=== PATIENT | female | born 1965 | race American Indian/Alaskan Native ===

== ENCOUNTER 2021-06-13 04:04 | Emergency (ER) | payer MEDICAID ==
--- NOTE | 2021-06-13 05:08 | Event Note ---
ED Screening Note ED Screening Note: 35-year-old female [facility] emerge department complaining of a few day history of epigastric pain and abdominal bloating associated with nausea and increased belching and unknown etiology This initial assessment/diagnostic orders/clinical plan/treatment(s) is/are subject to change based on patients health status, clinical progression and re- assessment by fellow clinical providers in the ED. Further treatment and workup at subsequent clinical providers discretion. Patient/guardian urged not to elope from the ED as their condition may be serious if not clinically assessed and managed. Initial orders include: Obtain labs and EKG to evaluate to evaluate cardiopulmonary as per
[2021-06-13 05:38] LABS: Hematocrit 39.1 % (30.3-42.9); Hemoglobin 13.4 gm/dl (10.1-14.3); Mean Corpuscular HGB Conc 34 % (30-34); Mean Corpuscular Volume 100 fl (79-97); Platelet Count 290 K/mm3 (140-440); Red Blood Count 3.91 M/mm3 (3.65-5.03); Red Cell Distribution Width 12.5 % (13.2-15.2)
[2021-06-13 05:49] LABS: Alanine Aminotransferase 12 units/L (7-56); Albumin 4.8 g/dL (3.9-5); Blood Urea Nitrogen 9 mg/dL (7-17); Hemolysis Index 10
[2021-06-13 05:51] LABS: BUN/Creatinine Ratio 15; Bilirubin,Direct < 0.2 mg/dL (0-0.2)
--- NOTE | 2021-06-13 06:22 | XRay Report ---
CHEST 2 VIEWS INDICATION: cp. COMPARISON: None. FINDINGS: Support devices: None. Heart: Within normal limits. Lungs/Pleura: No acute air space or interstitial disease. No significant pleural effusion. IMPRESSION: No acute findings. Signer Name: Jeison Dowell MD Signed: 06/13/2021 6:17 AM Workstation Name: [id number]
[2021-06-13] MEDS ORDERED: MORPHINE 2 MG/1 ML INJ IV NR (06:48)
[2021-06-13] MEDS ORDERED: ONDANSETRON 4 MG/2 ML INJ IV NR (06:48)
[2021-06-13] MEDS ORDERED: SODIUM CHLORIDE 0.9% 1000 ML 1,000 ML IV ONE (06:48)
--- NOTE | 2021-06-13 06:50 | Emergency Department Report ---
ED Abdominal Pain HPI - General Chief Complaint: Abdominal Pain PUI?: No Time Seen by Provider: 06/13/21 06:14 Source: patient Mode of arrival: Ambulatory Limitations: No Limitations - History of Present Illness Initial Comments: 55-year-old -Japanese female with a past medical history of hypertension, hyperlipidemia, status post gastric sleeve in 2019 and a history of hiatal hernia presents to the ER today with complaints of epigastric pain. Patient states that her pain started last night. She states that it felt like "trapped gas". She has been doing increased burping but no flatulence. She reports associated nausea and vomited. She states that she vomited about 5-6 times. Emesis was mainly bilious of clear liquid. She states that her last bowel movement was yesterday morning and normal. She was also having cold sweats last night and so given all her symptoms she decided come to the ER. She denies any fever. She reports no chest pain or shortness of breath. She reports no other symptoms at this time. MD Complaint: abdominal pain -: Last night - Related Data Previous Rx's Medication Instructions Recorded Last Taken Type Famotidine [Pepcid] 20 mg PO BID #30 tablet 06/13/21 Unknown Rx Ondansetron [Zofran Odt] 4 mg PO Q8HR #15 tab.rapdis 06/13/21 Unknown Rx Pantoprazole [Protonix] 40 mg PO QDAY #30 tablet 06/13/21 Unknown Rx traMADoL [Ultram] 50 mg PO Q4HR PRN #12 tablet 06/13/21 Unknown Rx Allergies Allergy/AdvReac Type Severity Reaction Status Date / Time gabapentin AdvReac Unknown Verified 06/13/21 07:35 ED Review of Systems ROS: Stated complaint: Other details as noted in HPI Comment: All other systems reviewed and negative Constitutional: denies: chills, fever Eyes: denies: eye pain, eye discharge, vision change ENT: denies: ear pain, throat pain Respiratory: denies: cough, shortness of breath, wheezing Cardiovascular: denies: chest pain, palpitations, dyspnea on exertion Gastrointestinal: abdominal pain, nausea, vomiting Genitourinary: denies: urgency, dysuria, frequency, hematuria, discharge, abnormal menses, dyspareunia Musculoskeletal: denies: back pain, joint swelling, arthralgia Skin: denies: rash, lesions Neurological: denies: headache, weakness, numbness, paresthesias, confusion, abnormal gait, vertigo Psychiatric: denies: anxiety, depression, auditory hallucinations, visual hallucinations, homicidal thoughts, suicidal thoughts Hematological/Lymphatic: denies: easy bleeding, easy bruising, swollen glands ED Past Medical Hx - Medications Home Medications: Home Medications Medication Instructions Recorded Confirmed Last Taken Type Famotidine [Pepcid] 20 mg PO BID #30 tablet 06/13/21 Unknown Rx Ondansetron [Zofran Odt] 4 mg PO Q8HR #15 tab.rapdis 06/13/21 Unknown Rx Pantoprazole [Protonix] 40 mg PO QDAY #30 tablet 06/13/21 Unknown Rx traMADoL [Ultram] 50 mg PO Q4HR PRN #12 tablet 06/13/21 Unknown Rx ED Physical Exam - General General appearance: alert, in no apparent distress, obese - Head Head exam: Present: atraumatic, normocephalic, normal inspection - Eye Eye exam: Present: normal appearance, PERRL, EOMI Pupils: Present: normal accommodation - Neck Neck exam: Present: normal inspection, full ROM. Absent: meningismus - Respiratory Respiratory exam: Present: normal lung sounds bilaterally. Absent: respiratory distress, wheezes, rales, rhonchi - Cardiovascular Cardiovascular Exam: Present: regular rate, normal rhythm, normal heart sounds - GI/Abdominal GI/Abdominal exam: Present: soft, tenderness (Epigastric ). Absent: distended, guarding, rebound, rigid - Neurological Exam Neurological exam: Present: alert, oriented X3, CN II-XII intact, normal gait - Psychiatric Psychiatric exam: Present: normal affect, normal mood - Skin Skin exam: Present: intact ED Course Vital Signs 06/13/21 06/13/21 06/13/21 07:04 08:27 08:57 Temperature 98.3 F 98.8 F Pulse Rate 57 L 88 Respiratory 16 16 16 Rate Blood Pressure 181/74 132/86 [Right] O2 Sat by Pulse 99 98 Oximetry ED Medical Decision Making - Lab Data Result diagrams: 06/13/21 05:12 06/13/21 05:12 - EKG Data EKG shows normal: sinus rhythm Rate: bradycardia (49) - EKG Data Interpretation: normal EKG - Radiology Data Radiology results: report reviewed Patient: PATRICIO ANN MR#: [id number] 56 : 1965 Acct:[id number] Age/Sex: 55 / F ADM Date: 06/13/21 Loc: ED Attending Dr: Ordering Physician: EARNESTINE FRANZ Date of Service: 06/13/21 Procedure(s): XR chest routine 2V Accession Number(s): [id number] cc: EARNESTINE FRANZ Fluoro Time In Minutes: CHEST 2 VIEWS INDICATION: cp. COMPARISON: None. FINDINGS: Support devices: None. Heart: Within normal limits. Lungs/Pleura: No acute air space or interstitial disease. No significant pleural effusion. IMPRESSION: No acute findings. Signer Name: Jeison Dowell MD Signed: 06/13/2021 6:17 AM Workstation Name: [id number] Transcribed By: ES Dictated By: Jeison Dowell MD Electronically Authenticated By: Jeison Dowell MD Signed Date/Time: 06/13/21616 DD/ 6 TD/TT: Patient: PATRICIO ANN MR#: [id number] 56 : 1965 Acct:[id number] Age/Sex: 55 / F ADM Date: 06/13/21 Loc: ED Attending Dr: Ordering Physician: JAMAR LANG Date of Service: 06/13/21 Procedure(s): CT abdomen pelvis w con Accession Number(s): [id number] cc: JAMAR LANG CT ABDOMEN AND PELVIS WITH CONTRAST INDICATION / CLINICAL INFORMATION: Epigastric pain with nausea and vomiting.. TECHNIQUE: Axial CT images were obtained through the abdomen and pelvis after Omnipaque 300, 100 [address] scans at this location are performed using CT dose reduction for ALARA by means of automated exposure control. COMPARISON: None available. FINDINGS: LOWER CHEST: No significant abnormality. LIVER: No significant abnormality. GALLBLADDER: No significant abnormality. BILE DUCTS: No significant abnormality. PANCREAS: No significant abnormality. SPLEEN: No significant abnormality. ADRENALS: No significant abnormality. RIGHT KIDNEY / URETER: No significant abnormality. LEFT KIDNEY / URETER: No significant abnormality. STOMACH / SMALL BOWEL: Previous gastric surgery. No small bowel dilatation. COLON: Noninflamed diverticulosis greatest at the sigmoid colon. APPENDIX: No significant abnormality. PERITONEUM: No free fluid. No free air. No fluid collection. LYMPH NODES: No significant adenopathy. VASCULAR STRUCTURES: No significant abnormality. URINARY BLADDER: No significant abnormality. REPRODUCTIVE ORGANS: 1.8 cm left ovarian cyst. ADDITIONAL FINDINGS: None. SKELETAL SYSTEM: Advanced DJD right hip. IMPRESSION: 1. Negative for obstruction or localized inflammation. 2. Noninflamed colonic diverticulosis. 3. 1.8 cm left ovarian cyst. Signer Name: Jeison Dowell MD Signed: 06/13/2021 7:33 AM Workstation Name: [id number] Transcribed By: ES Dictated By: Jeison Dowell MD Electronically Authenticated By: Jeison Dowell MD Signed Date/Time: 06/13/21732 DD/ 7 TD/TT: - Medical Decision Making Standing orders were placed when at triage. Labs reviewed by me -- with no significant abnormality. UA still pending. Chest x-ray shows no acute abnormality. EKG shows sinus vannesa at 49bpm but otherwise no STEMI or other significant dysrhythmia. Patient states that she still having pain in the epigastric area. She was not given anything for pain upon arrival. Orders placed for IV Komal as well as saline bolus and a CT abdomen pelvis. 901:CT abdomen and pelvis shows nothing acute. Pt currently resting comfortably in recliner. She appears to be feeling better after IV fluids and meds. Discussed all results with patient. Given her history of hiatal hernia informed her that this could be the cause of her symptoms but I do recommend that she follows up with bariatric surgeon, and or GI specialist or primary care doctor for further evaluation including doing an endoscopy. In the meantime patient will be given medications to help her symptoms. Patient expressed understanding of instructions and agree with plan. Patient was stable at time of discharge. - Differential Diagnosis Bowel obstruction, pancreatitis, cardiopulmonary emergency, cholecystitis Critical care attestation.: If time is entered above; I have spent that time in minutes in the direct care o f this critically ill patient, excluding procedure time. ED Disposition Clinical Impression: Epigastric pain Disposition: HOME / SELF CARE / HOMELESS Is pt being admited?: No Does the pt Need Aspirin: No Condition: Stable Instructions: Abdominal Pain, Adult, [id number], Abdominal Pain (ED) Additional Instructions: Take medications as prescribed to help your symptoms. Follow-up with your bariatric surgery and/or GI specialist and or your primary care doctor this week or next week. Return to the ER if your symptoms changes or worsens in any way. Prescriptions: Famotidine [Pepcid] 20 mg PO BID #30 tablet Pantoprazole [Protonix] 40 mg PO QDAY #30 tablet traMADoL [Ultram] 50 mg PO Q4HR PRN #12 tablet PRN Reason: Pain Ondansetron [Zofran Odt] 4 mg PO Q8HR #15 tab.rapdis Referrals: PRIMARY CARE, [Primary Care Provider] - 3-5 Days Time of Disposition: 07:58
[2021-06-13 06:52] LABS: Basophils % (Manual) 0 % (0.0-1.8); Eosinophils % (Manual) 0 % (0.0-4.3); Platelet Estimate Consistent w Auto; RBC Morphology Normal; Total Cells Counted 100
[2021-06-13 06:58] LABS: HCG Qualitative,Urine Negative (Negative)
[2021-06-13 06:59] LABS: Bacteria,Urine 1+ /HPF (Negative); Bilirubin,Urine NEG (Negative); Blood,Urine NEG (Negative); Color,Urine Yellow (Yellow); Mucus,Urine 2+ /HPF; Urobilinogen,Urine < 2.0 mg/dL (<2.0)
--- NOTE | 2021-06-13 07:37 | Cat Scan Report ---
CT ABDOMEN AND PELVIS WITH CONTRAST INDICATION / CLINICAL INFORMATION: Epigastric pain with nausea and vomiting.. TECHNIQUE: Axial CT images were obtained through the abdomen and pelvis after Omnipaque 300, 100 cc I V contrast. All CT scans at this location are performed using CT dose reduction for ALARA by means o f automated exposure control. COMPARISON: None available. FINDINGS: LOWER CHEST: No significant abnormality. LIVER: No significant abnormality. GALLBLADDER: No significant abnormality. BILE DUCTS: No significant abnormality. PANCREAS: No significant abnormality. SPLEEN: No significant abnormality. ADRENALS: No significant abnormality. RIGHT KIDNEY / URETER: No significant abnormality. LEFT KIDNEY / URETER: No significant abnormality. STOMACH / SMALL BOWEL: Previous gastric surgery. No small bowel dilatation. COLON: Noninflamed diverticulosis greatest at the sigmoid colon. APPENDIX: No significant abnormality. PERITONEUM: No free fluid. No free air. No fluid collection. LYMPH NODES: No significant adenopathy. VASCULAR STRUCTURES: No significant abnormality. URINARY BLADDER: No significant abnormality. REPRODUCTIVE ORGANS: 1.8 cm left ovarian cyst. ADDITIONAL FINDINGS: None. SKELETAL SYSTEM: Advanced DJD right hip. IMPRESSION: 1. Negative for obstruction or localized inflammation. 2. Noninflamed colonic diverticulosis. 3. 1.8 cm left ovarian cyst. Signer Name: Jeison Dowell MD Signed: 06/13/2021 7:33 AM Workstation Name: [id number]
[2021-06-13] MEDS ORDERED: MORPHINE 2 MG/1 ML INJ IV ONE (08:25)
[2021-06-13] MEDS ORDERED: ONDANSETRON 4 MG/2 ML INJ IV ONE (08:25)
[2021-06-13 08:59] VITALS: BP 132/86
--- NOTE | 2021-06-15 18:46 | Electrocardiograph Report ---
[facility] Test Date: 2021-06-13 Test Time: 00:29:09 Pat Name: PATRICIO ANN Department: Room: Gender: F Payroll Secretary: VAMSHI : 1965 Requested By: HILARIO VILLA Order Number: [id number] Reading MD: Jeffrey Franco Measurements Intervals [place] Rate: 49 P: 41 NC: 154 QRS: 12 QRSD: 90 T: 30 QT: 506 QTc: 460 Interpretive Statements Sinus bradycardia NSTW'S No previous ECG available for comparison Electronically Signed On 06-15-2021 18:45:33 EDT by Jeffrey Franco
== END 2021-06-13 08:59 | disposition home or self-care (01) ==
LOC: EDSTATUS 04:04 → ED 04:04
DX: R10.13 Epigastric pain (principal); R11.2 Nausea with vomiting, unspecified; I10 Essential (primary) hypertension; E78.5 Hyperlipidemia, unspecified; Z88.8 Allergy status to other drugs, medicaments and biological substances
CPT/HCPCS: 36415; 71046; 74177; 80048; 80076; 81001; 81025; 83690; 85007; 85025; 93005; 96361; 96374; 96375; 99284; J2270; J2405; J7030; Q9967; Q0162